=== PATIENT | male | born 1955 | race Caucasian/White ===

== ENCOUNTER 2023-05-09 22:18 | Inpatient (IN) | payer OTHER ==
[~2023-05-09 22:18] MED LIST: MIDAZOLAM 2 MG/2 ML VIAL IVP ONE; fentaNYL (PF) 50 MCG/1 ML VIAL IVP ONE
[2023-05-09] MEDS ORDERED: HEPARIN SODIUM 1,000 UN/ML (10ML VL) IVP STA (22:19)
[2023-05-09] MEDS ORDERED: ATORVASTATIN 80 MG TAB PO STA (22:19)
[2023-05-09 22:22] LABS: Glucose,Whole Blood 441 mg/dL (70-110)
[2023-05-09] MEDS ORDERED: NALOXONE 0.4 MG/ML 1 ML VIAL IV PRN (22:23)
[2023-05-09] MEDS ORDERED: DEXTROSE 5% IN WATER 100 ML with AMIODARONE 150 MG IV ONE (22:30)
[2023-05-09 22:36] LABS: Basophils # (A) 0.1 k/uL (0-0.2); Basophils % (A) 1 %; Eosinophils # (A) 0.1 k/uL (0-0.7); Eosinophils % (A) 1 %; HCT 48.9 % (39.0-53.0); HGB 17.1 gm/dL (13.0-17.5); Lymphocytes # (A) 3.6 k/uL (1.0-4.8); Lymphocytes % (A) 41 %; MCHC 34.9 g/dL (31.0-37.0); MCV 91.8 fL (80.0-100.0); Mean Platelet Volume 9.5; Monocytes # (A) 0.4 k/uL (0-1.0); Monocytes % (A) 5 %; Neutrophils # (A) 4.5 k/uL (1.3-7.7); Neutrophils % (A) 51 %; Platelet Count 120 k/uL (150-450); RBC 5.32 m/uL (4.30-5.90); RDW 14.3 % (11.5-15.5); WBC 8.9 k/uL (3.8-10.6)
[2023-05-09] MEDS ORDERED: AMIODARONE 360 MG in DEXTROSE 5% IN WATER 200 ML IV ONE ×2 (22:40)
--- NOTE | 2023-05-09 22:46 | ED ---
General Adult HPI - General Stated complaint: STEMI Time Seen by Provider: 05/09/23 22:20 Source: patient, EMS, RN notes reviewed, old records reviewed Limitations: no limitations - History of Present Illness Initial comments: 68 yo male presenting as acute NV. Patient was prehospital activation of STEMI protocol based on the anterior elevation on EKG. He had complaint of chest pain and diaphoresis this was central left-sided chest pain. He was noted to be in a tachydysrhythmia upon arrival, likely V. tach. Patient is chest pain-free upon arrival. He had elevated blood sugar and does admit to alcohol consumption today. No vomiting. Patient given aspirin by paramedics during transport - Related Data Home Medications Medication Instructions Recorded Confirmed metFORMIN HCL [Glucophage] 1,000 mg PO DAILY 05/16/18 05/16/18 Allergies Allergy/AdvReac Type Severity Reaction Status Date / Time No Known Allergies Allergy Verified 05/16/18 09:44 Review of Systems ROS Statement: Those systems with pertinent positive or pertinent negative responses have been documented in the HPI. ROS Other: All systems not noted in ROS Statement are negative. Past Medical History Past Medical History: Diabetes Mellitus, GERD/Reflux Additional Past Medical History / Comment(s): seasonal allergies, joint pain, tobacco and alcohol abuse History of Any Multi-Drug Resistant Organisms: None Reported Past Surgical History: No Surgical Hx Reported Past Anesthesia/Blood Transfusion Reactions: No Reported Reaction Past Psychological History: Depression Additional Psychological History / Comment(s): previous suicide attempt Past Alcohol Use History: Daily Additional Past Alcohol Use History / Comment(s): 1 case of beer every 5 days Past Drug Use History: None Reported General Exam General appearance: alert, appears intoxicated Head exam: Present: atraumatic, normocephalic Eye exam: Present: normal appearance, PERRL Respiratory exam: Present: normal lung sounds bilaterally. Absent: respiratory distress, wheezes Cardiovascular Exam: Present: regular rate, normal rhythm GI/Abdominal exam: Present: distended Extremities exam: Present: normal inspection, normal capillary refill Neurological exam: Present: alert, oriented X3 Skin exam: Present: warm, intact Medical Decision Making - Medical Decision Making Was pt. sent in by a medical professional or institution (, PA, [employer], urgent care, hospital, or senior care...) When possible be specific @ -No Did you speak to anyone other than the patient for history (EMS, parent, family, police, friend...)? What history was obtained from this source @ -No Did you review nursing and triage notes (agree or disagree)? Why? @ -I reviewed and agree with nursing and triage notes Were old charts reviewed (outside hosp., previous admission, EMS record, old EKG, old radiological studies, urgent care reports/EKG's, senior care records)? Report findings @ -No old charts were reviewed Differential Diagnosis (chest pain, altered mental status, abdominal pain women, abdominal pain men, vaginal bleeding, weakness, fever, dyspnea, syncope, headache, dizziness, GI bleed, back pain, seizure, CVA, palpatations, mental health, musculoskeletal)? @ -not applicable EKG interpreted by me (3pts min.). @ -Sinus tachycardia with ST segment elevation in the anterior leads, rate of 112, ND interval 159, QRS duration 97, QTC 388. X-rays interpreted by me (1pt min.). @ -Stat x-ray ordered, images pending CT interpreted by me (1pt min.). @ -None done U/S interpreted by me (1pt. min.). @ -None done What testing was considered but not performed or refused? (CT, X-rays, U/S, labs)? Why? @ -None What meds were considered but not given or refused? Why? @ -None Did you discuss the management of the patient with other professionals (professionals i.e. , PA, [employer], lab, RT, psych nurse, foster care social worker, quill layer, teacher, juvenile officer, senior case manager)? Give summary @ -[Dr. Griffith covering for cardiology, out physician group Was smoking cessation discussed for >3mins.? @ -No Was critical care preformed (if so, how long)? @ -No Were there social determinants of health that impacted care today? How? (Homelessness, low income, unemployed, alcoholism, drug addiction, transportation, low edu. Level, literacy, decrease access to med. care, long term, rehab)? @ -No Was there de-escalation of care discussed even if they declined (Discuss DNR or withdrawal of care, Hospice)? DNR status @ -No What co-morbidities impacted this encounter? (DM, HTN, Smoking, COPD, CAD, Cancer, CVA, ARF, Chemo, Hep., AIDS, mental health diagnosis, sleep apnea, morbid obesity)? @ -Diabetes, current smoker, alcohol Was patient admitted / discharged? Hospital course, mention meds given and route, prescriptions, significant lab abnormalities, going to OR and other pertinent info. @68-year-old male with ventricular tachycardia and acute NV. Patient is a STEMI activation, had been given aspirin prior to arrival. He's given heparin, Lipitor, and amiodarone in the emergency department. All workup is pending at the time of this dictation. Patient admitted immediately to the [facility]. Undiagnosed new problem with uncertain prognosis? @ -No Drug Therapy requiring intensive monitoring for toxicity (Heparin, Nitro, Insulin, Cardizem)? @ -No Were any procedures done? @ -No Diagnosis/symptom? @ -V. tach, STEMI Acute, or Chronic, or Acute on Chronic? @ -Acute Uncomplicated (without systemic symptoms) or Complicated (systemic symptoms)? @ -Complicated Side effects of treatment? @ -No Exacerbation, Progression, or Severe Exacerbation? @ -No Poses a threat to life or bodily function? How? (Chest pain, USA, NV, pneumonia, PE, COPD, DKA, ARF, appy, cholecystitis, CVA, Diverticulitis, Homicidal, Suicidal, threat to staff... and all critical care pts) @ -[S, STEMI - Lab Data Lab Results 05/09/23 Range/Units 22:20 POC Glucose (mg/dL) 441 H (70-110) mg/dL POC Glu Progressive Care Nurse ID Erica Rebollar Disposition Clinical Impression: STEMI (ST elevation myocardial infarction) Disposition: ADMITTED IP TO THIS HOSP Condition: Serious Is patient prescribed a controlled substance at d/c from ED?: No Referrals: [facility],Clinic [Primary Care Provider] - 1-2 days Time of Disposition: 22:45
--- NOTE | 2023-05-09 22:47 | XR ---
EXAM: XR Chest, 1 View CLINICAL HISTORY: ITS.REASON XR Reason: chest pain TECHNIQUE: Frontal view of the chest. COMPARISON: No relevant prior studies available. FINDINGS: Lungs: Unremarkable. No consolidation. Pleural space: Unremarkable. No pneumothorax. Heart: Unremarkable. No cardiomegaly. Mediastinum: Unremarkable. Normal mediastinal contour. Bones/joints: Unremarkable. No acute fracture. IMPRESSION: Normal chest x-ray.
[2023-05-09 22:49] LABS: INR 0.9 (<1.2); Partial Thromboplastin Time 22.8 sec (22.0-30.0); Prothrombin Time 10.5 sec (10.0-12.5)
--- NOTE | 2023-05-09 22:50 | P.CRDCN ---
History of Present Illness Consult date: 05/09/23 History of present illness: HISTORY OF PRESENTING ILLNESS 68-year-old male who has not seen any physician recently and last 3 years. He smokes 1 pack per day has been a long-term smoker. He also drinks alcohol almost every day approximately 4 drinks. Patient reports that he was apparently well until his dinner. After dinner he started experiencing substernal chest pain which was pressure-like and heavy sensation. It was not relieved with 2 full dose aspirin switch his gave him. It was associated with difficulty in breathing and diaphoresis and nausea. Due to this to called EMS. When EMS arrived they noticed that he was in ventricular tachycardia with heart rate around 150s. He came out of ventricular tachycardia spontaneously and postconversion ECG shows ST elevations in lead V2 to V4. STEMI alert was activated and cardiology was paged. I evaluate the patient around 10:30 PM. Performed a bedside echocardiogram which showed mid to distal anterior anteroseptal and anteroapical wall hypokinesia. EF appeared to be in the range of 35-40%. Patient denies any prior history of stroke, TIA bleeding problems major AL LERGIES. Patient received 325 mg of aspirin, 4000 units of heparin, 150 mg bolus of amiodarone. REVIEW OF SYSTEMS 14 point review of system is negative except what is mentioned above in HPI. PHYSICAL EXAMINATION Vital signs reviewed. Head: Normocephalic. Eyes: Sclerae nonicteric. Neck: Brisk carotid upstroke, no jugular venous distention. Lungs: Clear to auscultation. Heart: Regular rate and rhythm, S1-S2, no S3, no murmur or rub. Abdomen: Soft nontender, positive bowel sounds no organomegaly. Extremities: No edema, intact distal pulses. Neuro: Alert, oritented, no focal deficits ASSESSMENT Anterior STEMI Heavy smoking history Heavy alcohol use history PLAN Plan for emergent cardiac catheterization Further recommendations to follow Past Medical History Past Medical History: Diabetes Mellitus, GERD/Reflux Additional Past Medical History / Comment(s): seasonal allergies, joint pain, tobacco and alcohol abuse History of Any Multi-Drug Resistant Organisms: None Reported Past Surgical History: No Surgical Hx Reported Past Anesthesia/Blood Transfusion Reactions: No Reported Reaction Past Psychological History: Depression Additional Psychological History / Comment(s): previous suicide attempt Past Alcohol Use History: Daily Additional Past Alcohol Use History / Comment(s): 1 case of beer every 5 days Past Drug Use History: None Reported Medications and Allergies Home Medications Medication Instructions Recorded Confirmed Type metFORMIN HCL [Glucophage] 1,000 mg PO DAILY 05/16/18 05/16/18 History Allergies Allergy/AdvReac Type Severity Reaction Status Date / Time No Known Allergies Allergy Verified 05/16/18 09:44 Physical Exam Vitals: Vital Signs Temp Pulse Resp BP Pulse Ox 05/09/23 22:33 97.8 F 111 H 18 136/90 97 Intake and Output 05/09/23 05/09/23 05/09/23 06:59 14:59 22:59 Other: Weight 99.79 kg Results 05/09/23 22:23 CBC 05/09/23 Range/Units 22:23 WBC 8.9 (3.8-10.6) k/uL RBC 5.32 (4.30-5.90) m/uL Hgb 17.1 (13.0-17.5) gm/dL Hct 48.9 (39.0-53.0) % Plt Count 120 L (150-450) k/uL Current Medications Generic Name Dose Route Start Last Admin Trade Name Freq PRN Reason Stop Dose Admin Amiodarone HCl 360 mg/ 200 mls @ 33.333 mls/hr 05/09/23 22:40 Dextrose/Water IV 05/10/23 04:39 .Q6H ONE Protocol 1 MG/MIN Amiodarone HCl 450 mg/ 250 mls @ 16.667 mls/hr 05/10/23 04:30 Dextrose/Water IV 05/10/23 22:29 .Q15H KATY Protocol 0.5 MG/MIN Naloxone HCl 0.2 mg 05/09/23 22:23 Naloxone 0.4 Mg/Ml 1 Ml Vial IV Q2M PRN Opioid Reversal Intake and Output 05/09/23 05/09/23 05/09/23 06:59 14:59 22:59 Other: Weight 99.79 kg Patient Weight 05/10/23 06:59 Weight 99.79 kg 05/09/23 22:23
[2023-05-09 22:52] LABS: ALT 24 U/L (4-49); AST 21 U/L (17-59); African American GFR (CKD) 88 (>60 ml/min/1.73 sqM); Albumin 4.5 g/dL (3.5-5.0); Alkaline Phosphatase 118 U/L (38-126); Anion Gap 15 mmol/L; Blood Urea Nitrogen 19 mg/dL (9-20); Calcium 9.4 mg/dL (8.4-10.2); Carbon Dioxide 21 mmol/L (22-30); Chloride 98 mmol/L (98-107); Glucose 412 mg/dL (74-99); Non-African American GFR(CKD) 76 (>60 ml/min/1.73 sqM); Potassium 3.7 mmol/L (3.5-5.1); Sodium 134 mmol/L (137-145); Total Bilirubin 0.8 mg/dL (0.2-1.3); Total Protein 7.6 g/dL (6.3-8.2)
[2023-05-09] MEDS ORDERED: fentaNYL (PF) 50 MCG/ML 2 ML AMP ONE (22:54)
[2023-05-09] MEDS: fentaNYL (PF) 50 MCG/1 ML VIAL IVP ONE ×2 (22:56→23:24)
[2023-05-09] MEDS ORDERED: IV FLUID CONTINUATION 1,000 ML IV ONE (22:56)
[2023-05-09] MEDS ORDERED: MIDAZOLAM 2 MG/2 ML VIAL IVP ONE ×2 (22:56→23:24)
[2023-05-09] MEDS ORDERED: LIDOCAINE 1% INJ 10MG/ML (20 ML MDV) SQ ONE (22:57)
[2023-05-09] MEDS ORDERED: VERAPAMIL SYRINGE (5 MG/10 ML) INTRAARTER ONE (22:58)
[2023-05-09] MEDS: HEPARIN SODIUM 1,000 UN/ML (10ML VL) IV ONE ×3 (23:08→23:41)
[2023-05-09] MEDS ORDERED: TICAGRELOR 90 MG TAB ONE (23:16)
[2023-05-09] MEDS ORDERED: TICAGRELOR 90 MG TAB PO ONE (23:19)
[2023-05-09] MEDS ORDERED: SODIUM CHLORIDE 0.9% 1,000 ML IV ONE (23:25)
--- NOTE | 2023-05-09 23:28 | P.CARDCATH ---
Date of Procedure: 05/09/23 Description of Procedure: LEFT HEART CATH REPORT PROCEDURES PERFORMED: Selective coronary angiography Moderate conscious sedation [21] mins Right radial access INDICATION: STEMI CONSENT: I have discussed the risks, benefits and alternative therapies for the above-mentioned procedure, sedation/analgesia and necessary blood product administration (if indicated, as they pertain to this patient). The patient has indicated understanding and acceptance of the risks and procedures discussed. Conscious Sedation: Patient's ECG, heart rate, blood pressure, pulse oximetry was monitored throughout the duration of procedure under my direct supervision. [1] mg Versed and [50] mg Fentanyl were used for induction of moderate conscious sedation. Total duration of moderate concious sedation [21] minutes. PROCEDURE: After explaining the risks, benefits and alternatives of the above mentioned procedures in detail to the patient, informed consent was obtained. Patient was taken to the catheterization lab, prepped and draped in usual sterile fashion using universal precuations. Barbow and luis test were performed to confirm adequate perfusion to fingers. Ultrasound was used to identify the radial artery. 1% lidocaine was infiltrated over the right radial artery. A 6-Georgian sheath was placed and secured in the right radial artery using modified Seldinger technique. The sheath was flushed and 5 mg verapamil was administered intra-arterially. J tipped wire was advanced under fluoroscopic guidance. Once the wire tip reached aortic root 2500 units of IV heparin was given. Patient received 4000 U in ER Over the wire JL4 diagnostic catheter was advanced. Wire was removed, catheter was flushed and manipulated under fluoroscopy to selectively engaged the left coronary ostium. Left coronary angioplasty was performed in different angiographic projections. This catheter was exchanged for a JR4 diagnostic catheter over the wire. The catheter was flushed and manipulated to cross the aortic valve. LV pressures were obtained. Pullback was performed across aortic valve and catheter was manipulated to selectively engage the right coronary ostium under fluoroscopic guidance. Right coronary angiography was performed in different angiographic projections. Catheter was removed over the wire. Radial sheath was flushed. Decision was made to proceed with PCI to ostial LAD HEMODYNAMICS: Aortic Pressure: 110/70 mmHg. LV pressure was not obtained to focus on LAD intervention in setting of STEMI SELECTIVE CORONARY ARTERIOGRAPHY: LEFT MAIN: The left main is a large caliber vessel which trifurcates into the LAD, Ramus and circumflex. Left main appears angiographically normal. LEFT ANTERIOR DESCENDING CORONARY ARTERY: Ostial LAD has 95% stenosis of YRN II flow distally. RAMUS: Large caliber vessel and appears angiographically normal. LEFT CIRCUMFLEX CORONARY ARTERY: It is nondominant vessel. Left circumflex is a moderate caliber vessel. Has mild luminal irregularities. It gives rise to a medium-sized OM1 branch which has a high takeoff, has mild luminal irregularities. RIGHT CORONARY ARTERY: Dominant vessel. The right coronary artery is a large caliber vessel which gives PDA and PLV branch. It has mild luminal irregularities. It gives septal collaterals to LAD and some collaterals to diagonal artery. IMPRESSION: 95% Ostial LAD stenosis with YRN II flow. Faint collaterals from RCA filling LAD retrogradely Mild CAD in other arteries PLAN: Plan PCI of ostial LAD Performing Physician Mychal Griffith MD
[2023-05-09] MEDS: NITROGLYCERIN 1000MCG/10ML SYRINGE INTRACORON ONE ×2 (23:32→23:38)
[2023-05-09] MEDS ORDERED: IOPAMIDOL-370 200ML BTL INJ ONE (23:47)
[2023-05-09] MEDS ORDERED: MAG HYDROX/AL HYDROX/SIMETH 30 ML CUP PO PRN (23:59)
[2023-05-09] MEDS ORDERED: RX INFO: IV CONTRAST WAS GIVEN 1 EACH MISC MISCELLANE PRN (23:59)
[2023-05-09] MEDS ORDERED: NITROGLYCERIN SL TABS 0.4 MG TAB SUBLINGUAL PRN (23:59)
[2023-05-09] MEDS ORDERED: ATROPINE SULFATE 0.1 MG/ML 10ML SYRINGE IV PRN (23:59)
[2023-05-09] MEDS ORDERED: ZOLPIDEM 5 MG TAB PO PRN (23:59)
--- NOTE | 2023-05-09 23:59 | P.PRCINT ---
Percutaneous Coronary Int. - Percutaneous Coronary Intervention Percutaneous Coronary Intervention: PROCEDURES PERFORMED: Left coronary angiography, PCI proximal LAD with overlapping 3.0 x 18mm and 2.5 x 12mm Xience SHANA, IVUS LAD INDICATION: Anterior STEMI CONSENT:I have discussed the risks, benefits and alternative therapies for the above-mentioned procedure and for both sedation/analgesia as well as necessary blood product administration, if indicated, as they pertain to this patient. The patient has indicated understanding and acceptance of the risks and procedures discussed. PROCEDURE: After the risks, benefits and alternatives of the above mentioned procedure explained in detail with the patient, informed consent was obtained. Patient was taken to the catheterization lab and prepped and draped in usual fashion. A 6-Nepali sheath had previously been placed in the right radial artery. Patient was not having active chest pain and presentation subacute with right to left collaterals however given ventricular tachycardia and possible ischemia mediated ventricular tachycardia, decision was made to perform PCI. A 6-Nepali CLS 3.5 guide was using diesel left main. Heparin was given. A 0.014 whisper wire was used to advance into the distal LAD. Predilation was performed with a 2.5 x 12 mm balloon. Next a 3.0 x 18mm Xience SHANA was placed in the proximal LAD. Intravascular ultrasound was performed. There was likely vasospasm with small caliber mid to distal LAD measuring approximately 2.0 mm. There was a more distal lesion just after the stent and therefore an additional 2.5 x 12 mm Xience SHANA was placed overlapping the first stent. The wire was pulled and final exams were performed. Preintervention there was 99% stenosis and YRN 1 flow in both intervention there was 0% stenosis with YRN 3 flow. The right radial sheath was removed and a TR band was placed with hemostasis achieved. The patient tolerated the procedure well. Patient was transported back to the post catheterization holding area in stable condition. Conscious Sedation: Patient was monitored under the direct supervision of myself for conscious sedation using Versed and fentanyl for a total duration of 33 minutes HEMODYNAMICS: Aorta: 105/68 SELECTIVE CORONARY ARTERIOGRAPHY: LEFT MAIN: The left main is a large caliber vessel which trifurcates into the LAD, ramus and circumflex. There is no significant stenosis. LEFT ANTERIOR DESCENDING CORONARY ARTERY: LAD is a large caliber vessel which wr aps around to the apex. There is a proximal LAD 99% stenosis and otherwise mild luminal irregularities. RAMUS INTERMEDIUS: Ramus is a moderate to large caliber vessel with mild luminal irregularities LEFT CIRCUMFLEX CORONARY ARTERY: Left circumflex is a moderate caliber vessel which also gives off a high OM 1 nearly back at the ostium of the circumflex with mild luminal irregularities. RIGHT CORONARY ARTERY: The right coronary artery is a large caliber vessel which gives off a PDA and PLV branch and is the dominant vessel. There is no significant stenosis. FINAL IMPRESSION: 1. CAD as described above including 99% proximal LAD lesion with right to left collaterals 2. S/p PCI proximal LAD with overlapping 3.0 x 18mm and 2.5 x 12mm Xience SHANA PLAN: 1. Aggressive risk factor modification per most recent ACC/AHA guidelines. 2. Continue dual antiplatelets with aspirin and Brillinta for 12 months
[2023-05-10] MEDS: SODIUM CHLORIDE 0.9% 1,000 ML IV SCH ×2 (01:00→15:34)
[2023-05-10] MEDS: METOPROLOL TARTRATE 25 MG TAB PO SCH ×3 (01:12→19:58)
[2023-05-10 04:26] LABS: HCT 42.6 % (39.0-53.0); HGB 14.2 gm/dL (13.0-17.5); MCH 31.6 pg (25.0-35.0); MCHC 33.4 g/dL (31.0-37.0); MCV 94.6 fL (80.0-100.0); Mean Platelet Volume 9.6; Platelet Count 110 k/uL (150-450); RBC 4.51 m/uL (4.30-5.90); WBC 7.7 k/uL (3.8-10.6)
[2023-05-10] MEDS: AMIODARONE 450 MG in DEXTROSE 5% IN WATER 250 ML IV SCH ×4 (04:51→20:55)
--- NOTE | 2023-05-10 04:52 | P.HPIM ---
History of Present Illness H&P Date: 05/09/23 Chief Complaint: chest pain 68 year old male with no significant past medical history ,patient does not follow up with PCP > 3 years now. coming in afterr sudden onset chest pain after dinner, described as crushing pressure, restrosternal started after dinner, 10/10 in severity with difficulty breathing, profuse sweating and feeling nauseated. patient gave him two f ull doses of aspirin and notified EMS .patient denies any cardiac history , or prior episodes of severe chest pain. upon EMS arrival he was noted to be in Vtach that converted spontaneously , after which EKG showed ST elevation in leads V2-V4. 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 patient taken to [facility] and had a proximl LAD stent placed patient admit to smoking 1 PPD , denies any illicit drugs, admits to regular drinking . denies any cardiac history or blood clots. denies any URI symptoms , GI bleeding , changes in urnary or bowel habits. review of systems Pertinent positives as noted in HPI. All other systems were reviewed and are negative on exam Constitutional: No acute distress Eyes: Anicteric sclerae, moist conjunctiva, Pupils equal round reactive to light ENMT: NC/AT Oropharynx clear, no erythema, or exudates Neck: Supple, no masses, or JVD No carotid bruits No thyromegaly Lungs: Clear to auscultation Clear to percussion Normal respiratory effort, no accessory muscle use Cardiovascular: Heart regular in rate and rhythm, No murmurs, gallops, or rubs No peripheral edema Abdominal: Soft Nontender, no guarding, rebound or rigidity Abdomen moving with respiration Normoactive bowel sounds No hepatomegaly, No splenomegaly No palpable mass No abdominal wall hernia noted Extremities: access site right wrist looks unremarkable , no swelling or active bleeding No digital cyanosis No clubbing Pedal pulses intact and symmetrical Radial pulses intact and symmetrical No calf tenderness Psychiatric: Alert and oriented to person, place and time Neuro Muscles Strength 5/5 in all 4 extremities Sensation to light touch grossly present throughout Cranial nerves II-XII grossly intact Lymphatics: no palpable cervical or supraclavicular lymph nodes Past Medical History Past Medical History: Diabetes Mellitus, GERD/Reflux Additional Past Medical History / Comment(s): seasonal allergies, joint pain, tobacco and alcohol abuse History of Any Multi-Drug Resistant Organisms: None Reported Past Surgical History: No Surgical Hx Reported Past Anesthesia/Blood Transfusion Reactions: No Reported Reaction Past Psychological History: Depression Additional Psychological History / Comment(s): previous suicide attempt Past Alcohol Use History: Daily Additional Past Alcohol Use History / Comment(s): 1 case of beer every 5 days Past Drug Use History: None Reported Medications and Allergies Home Medications Medication Instructions Recorded Confirmed Type metFORMIN HCL [Glucophage] 1,000 mg PO DAILY 05/16/18 05/16/18 History Allergies Allergy/AdvReac Type Severity Reaction Status Date / Time No Known Allergies Allergy Verified 05/16/18 09:44 Physical Exam Vitals: Vital Signs Temp Pulse Resp BP Pulse Ox 05/09/23 22:33 97.8 F 111 H 18 136/90 97 05/09/23 22:30 101 H 18 116/81 97 Intake and Output 05/09/23 05/09/23 05/10/23 14:59 22:59 06:59 Intake Total 100 Balance 100 Intake: IV 100 Other: Weight 99.79 kg Results CBC & Chem 7: 05/10/23 03:50 05/09/23 22:23 Labs: Abnormal Lab Results - Last 24 Hours (Table) 05/09/23 05/09/23 05/09/23 Range/Units 22:20 22:23 22:23 Plt Count 120 L (150-450) k/uL Sodium 134 L (137-145) mmol/L Carbon Dioxide 21 L (22-30) mmol/L Glucose 412 H (74-99) mg/dL POC Glucose (mg/dL) 441 H (70-110) mg/dL Assessment and Plan Assessment: 68 year old male with no regular follow up with PCP, coming in for sudden onset chest pain after dinner, EMS noted Vtach that converted spontaneously , EKG showed ST elevation anteroseptal , I discussed the case with ED doc , patient was taken to [facility], and had a proximal LAD stents deployed. with anticipated length of stay > 2midnights STEMI Spontaneously convert V. tach Ischemic cardiomyopathy with left ventricular ejection fraction estimated 3540 percent Cardiology following Status post PCI 2 stents placed in proximal LAD Continue with dual antiplatelets aspirin and Brilinta per cardiology recommendations Maximal medical therapy Continue with amiodarone drip Lipitor 80 mg daily at bedtime Check lipid panel Check echocardiogram Hypertension Losartan 12.5 mg daily Metoprolol 25 mg by mouth twice a day Elevated blood sugar 400 range Suspected diabetes mellitus Initiate insulin sliding scale Check A1c Renal function unremarkable sodium 134 potassium 3.7 BUN 19 creatinine 1 Hemoglobin 14 white count 7.7 CODE STATUS patient requesting to be DO NOT RESUSCITATE DVT prophylaxis heparin subcu 3 times a day
[2023-05-10] MEDS ORDERED: DEXTROSE 50% SYRINGE 50 ML IVP PRN ×2 (04:53)
[2023-05-10 05:04] LABS: ALT 20 U/L (4-49); AST 20 U/L (17-59); African American GFR (CKD) >90 (>60 ml/min/1.73 sqM); Albumin 3.4 g/dL (3.5-5.0); Alkaline Phosphatase 113 U/L (38-126); Anion Gap 9 mmol/L; Blood Urea Nitrogen 20 mg/dL (9-20); Calcium 8.4 mg/dL (8.4-10.2); Carbon Dioxide 25 mmol/L (22-30); Chloride 101 mmol/L (98-107); Glucose 485 mg/dL (74-99); Non-African American GFR(CKD) 83 (>60 ml/min/1.73 sqM); Potassium 4.8 mmol/L (3.5-5.1); Sodium 135 mmol/L (137-145); Total Bilirubin 0.6 mg/dL (0.2-1.3); Total Protein 5.9 g/dL (6.3-8.2)
[2023-05-10 06:25] LABS: Glucose,Whole Blood 416 mg/dL (70-110)
[2023-05-10] MEDS: INSULIN ASPART (NovoLOG) 100 UNIT/ML VIAL SQ SCH ×4 (06:51→20:53)
[2023-05-10] MEDS ORDERED: ATORVASTATIN 20 MG TAB PO SCH (09:00)
[2023-05-10 09:48] LABS: Chol/HDL Ratio 6.19 Ratio; LDL Cholesterol,Calculated 145.9 mg/dL (0.0-131.0)
[2023-05-10] MEDS: ASPIRIN 81 MG PO SCH (10:16)
[2023-05-10] MEDS: LOSARTAN 25 MG TAB PO SCH (10:16)
[2023-05-10] MEDS: TICAGRELOR 90 MG TAB PO SCH ×2 (10:16→19:58)
[2023-05-10 11:16] LABS: Glucose,Whole Blood 233 mg/dL (70-110)
--- NOTE | 2023-05-10 11:42 | P.GSCN ---
History of Present Illness Consult date: 05/10/23 Reason for Consult: Left hydrocele History of present illness: This is a 68-year-old male admitted to the hospital with NSTEMI urology is consu lted for a left sided hydrocele. Patient indicated this has been present for approximately 4 years has not changed in size he is not having pain secondary to his hydrocele but it is causing penile retraction and difficulty voiding. Denies any dysuria or gross hematuria. No previous surgeries. Underwent a scrotal ultrasound that showed evidence of a left hydrocele, otherwise right- sided was within normal limits. Review of Systems - Constitutional Denies fever, Denies weight loss - EENT Ears, nose, mouth and throat: Denies dysphagia - Cardiovascular Denies chest pain, Denies shortness of breath - Respiratory Denies cough, Denies 7 - Gastrointestinal Reports as per HPI - Genitourinary Denies dysuria, Denies flank pain, Denies hematuria Past Medical History Past Medical History: Diabetes Mellitus, GERD/Reflux Additional Past Medical History / Comment(s): seasonal allergies, joint pain, tobacco and alcohol abuse History of Any Multi-Drug Resistant Organisms: None Reported Past Surgical History: No Surgical Hx Reported Past Anesthesia/Blood Transfusion Reactions: No Reported Reaction Past Psychological History: Depression Additional Psychological History / Comment(s): previous suicide attempt Past Alcohol Use History: Daily Additional Past Alcohol Use History / Comment(s): 1 case of beer every 5 days Past Drug Use History: None Reported Medications and Allergies Home Medications Medication Instructions Recorded Confirmed Type No Known Home Medications 05/10/23 05/10/23 History Allergies Allergy/AdvReac Type Severity Reaction Status Date / Time No Known Allergies Allergy Verified 05/10/23 09:27 Surgical - Exam Vital Signs Pulse Resp BP Pulse Ox 101 H 18 116/81 97 05/09/23 22:30 05/09/23 22:30 05/09/23 22:30 05/09/23 22:30 - General no distress, no pain - Eyes normal ocular movement, no pale - ENT normal nares, normal mucosa - Respiratory normal expansion, normal respiratory effort - Abdomen Abdomen: soft, non tender - Genitourinary Large tense left-sided hydrocele, unable to palpate the testicle. Normal right testicle - Psychiatric oriented to time, oriented to person, oriented to place Results - Labs 05/10/23 03:50 05/10/23 03:50 Abnormal Lab Results - Last 24 Hours (Table) 05/09/23 05/09/23 05/09/23 Range/Units 03:50 22:20 22:23 Plt Count 120 L (150-450) k/uL Sodium (137-145) mmol/L Carbon Dioxide (22-30) mmol/L Glucose (74-99) mg/dL POC Glucose (mg/dL) 441 H (70-110) mg/dL Hemoglobin A1c 10.4 H (<=6.0) % Total Protein (6.3-8.2) g/dL Albumin (3.5-5.0) g/dL Triglycerides (0.00-149.00) mg/dL Cholesterol (0.00-200.00) mg/dL LDL Cholesterol, Calc (0.0-131.0) mg/dL VLDL Cholesterol, Calc (5.00-40.00) mg/dL HDL Cholesterol (40.00-60.00) mg/dL 05/09/23 05/10/23 05/10/23 Range/Units 22:23 03:50 03:50 Plt Count 110 L (150-450) k/uL Sodium 134 L 135 L (137-145) mmol/L Carbon Dioxide 21 L (22-30) mmol/L Glucose 412 H 485 H (74-99) mg/dL POC Glucose (mg/dL) (70-110) mg/dL Hemoglobin A1c (<=6.0) % Total Protein 5.9 L (6.3-8.2) g/dL Albumin 3.4 L (3.5-5.0) g/dL Triglycerides (0.00-149.00) mg/dL Cholesterol (0.00-200.00) mg/dL LDL Cholesterol, Calc (0.0-131.0) mg/dL VLDL Cholesterol, Calc (5.00-40.00) mg/dL HDL Cholesterol (40.00-60.00) mg/dL 05/10/23 05/10/23 05/10/23 Range/Units 03:50 06:23 11:15 Plt Count (150-450) k/uL Sodium (137-145) mmol/L Carbon Dioxide (22-30) mmol/L Glucose (74-99) mg/dL POC Glucose (mg/dL) 416 H 233 H (70-110) mg/dL Hemoglobin A1c (<=6.0) % Total Protein (6.3-8.2) g/dL Albumin (3.5-5.0) g/dL Triglycerides 285.00 H (0.00-149.00) mg/dL Cholesterol 242.00 H (0.00-200.00) mg/dL LDL Cholesterol, Calc 145.9 H (0.0-131.0) mg/dL VLDL Cholesterol, Calc 57.00 H (5.00-40.00) mg/dL HDL Cholesterol 39.10 L (40.00-60.00) mg/dL Diabetes panel 05/09/23 05/09/23 05/10/23 Range/Units 03:50 22:23 03:50 Sodium 134 L 135 L (137-145) mmol/L Potassium 3.7 4.8 (3.5-5.1) mmol/L Chloride 98 101 (98-107) mmol/L Carbon Dioxide 21 L 25 (22-30) mmol/L BUN 19 20 (9-20) mg/dL Creatinine 1.03 0.96 (0.66-1.25) mg/dL Glucose 412 H 485 H (74-99) mg/dL Hemoglobin A1c 10.4 H (<=6.0) % Calcium 9.4 8.4 (8.4-10.2) mg/dL AST 21 20 (17-59) U/L ALT 24 20 (4-49) U/L Alkaline Phosphatase 118 113 (38-126) U/L Total Protein 7.6 5.9 L (6.3-8.2) g/dL Albumin 4.5 3.4 L (3.5-5.0) g/dL Triglycerides (0.00-149.00) mg/dL HDL Cholesterol (40.00-60.00) mg/dL 05/10/23 Range/Units 03:50 Sodium (137-145) mmol/L Potassium (3.5-5.1) mmol/L Chloride (98-107) mmol/L Carbon Dioxide (22-30) mmol/L BUN (9-20) mg/dL Creatinine (0.66-1.25) mg/dL Glucose (74-99) mg/dL Hemoglobin A1c (<=6.0) % Calcium (8.4-10.2) mg/dL AST (17-59) U/L ALT (4-49) U/L Alkaline Phosphatase (38-126) U/L Total Protein (6.3-8.2) g/dL Albumin (3.5-5.0) g/dL Triglycerides 285.00 H (0.00-149.00) mg/dL HDL Cholesterol 39.10 L (40.00-60.00) mg/dL Calcium panel 05/09/23 05/10/23 Range/Units 22: 03:50 Calcium 9.4 8.4 (8.4-10.2) mg/dL Albumin 4.5 3.4 L (3.5-5.0) g/dL Pituitary panel 05/09/23 05/10/23 Range/Units 22: 03:50 Sodium 134 L 135 L (137-145) mmol/L Potassium 3.7 4.8 (3.5-5.1) mmol/L Chloride 98 101 (98-107) mmol/L Carbon Dioxide 21 L 25 (22-30) mmol/L BUN 19 20 (9-20) mg/dL Creatinine 1.03 0.96 (0.66-1.25) mg/dL Glucose 412 H 485 H (74-99) mg/dL Calcium 9.4 8.4 (8.4-10.2) mg/dL Adrenal panel 05/09/23 05/10/23 Range/Units 22:23 03:50 Sodium 134 L 135 L (137-145) mmol/L Potassium 3.7 4.8 (3.5-5.1) mmol/L Chloride 98 101 (98-107) mmol/L Carbon Dioxide 21 L 25 (22-30) mmol/L BUN 19 20 (9-20) mg/dL Creatinine 1.03 0.96 (0.66-1.25) mg/dL Glucose 412 H 485 H (74-99) mg/dL Calcium 9.4 8.4 (8.4-10.2) mg/dL Total Bilirubin 0.8 0.6 (0.2-1.3) mg/dL AST 21 20 (17-59) U/L ALT 24 20 (4-49) U/L Alkaline Phosphatase 118 113 (38-126) U/L Total Protein 7.6 5.9 L (6.3-8.2) g/dL Albumin 4.5 3.4 L (3.5-5.0) g/dL Assessment and Plan Assessment: 68-year-old male with a history of a large left-sided hydrocele, asymptomatic from it. Patient is in the hospital with an NSTEMI. Discussed with him the only way to address the hydroceles is with a left hydrocelectomy, given his recent cardiac event I dont recommend any surgical intervention at this time. At this point he can follow-up as an outpatient in 2-3 months and he will be set up as an outpatient for left hydrocelectomy
--- NOTE | 2023-05-10 11:56 | US ---
EXAMINATION TYPE: US scrotum with doppler. Grayscale and color Doppler Duplex imaging performed of carlos alberto parsons scrotum. DATE OF EXAM: 05/10/2023 COMPARISON: NONE CLINICAL INDICATION: Male, 68 years old with history of enlarged scrotum; enlarged scrotum x 4 years EXAM MEASUREMENTS: TESTICLES: Right Testicle: 6.6x2.2x2.5 cm Left Testicle: 4.6x3.2x3.3 cm EPIDIDYMIS HEAD: Right Epididymis: 0.7 cm Left Epididymis: 0.8 cm Doppler performed to assess for testicular vascularity; good bilateral color flow and waveforms are s een. There is no evidence of testicular torsion. Presence of hydroceles: right side: complex fluid 12.9x10.5x10.2cm Presence of varicoceles: right side difficult to establish orientation of testicles due to large hydrocele, testicle non effected by hydr ocele is inferior to hydrocele exam limited by large hydrocele IMPRESSION: 1. Bilateral hydroceles measuring 12.9 cm on the right with some complexity which could be post infec tious or blood products etiology. Assessment of the testes limited due to the large hydroceles as dis cussed above.
[2023-05-10] MEDS ORDERED: INSULIN DETEMIR (LEVEMIR) 100 UNIT/ML SYR SQ ONE (12:00)
--- NOTE | 2023-05-10 13:41 | P.PN ---
Subjective Progress Note Date: 05/10/23 Hospital Course: 68-year-old male with history of nicotine dependence, and alcohol dependence presented with sudden onset chest pain. Upon EMS arrival he was noted to be in Vtach that converted spontaneously , after which EKG showed ST elevation in leads V2-V4. 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 In wharf labourer, found to have significant ostial LAD occlusion, 2 stents placed. Currently in medical ICU. Echocardiogram pending. Patient also found to have large scrotum likely hydrocele. Urology consulted. Subjective: Patient seen and examined at bedside. No acute events overnight. Pertinent positives and negatives as discussed above, a complete review of systems was performed and all other systems are negative. Vitals Signs Reviewed. General: nontoxic, no distress, appears at stated age Derm: warm, dry Head: atraumatic, normocephalic, symmetric Eyes: EOMI, no lid lag, anicteric sclera Mouth: no lip lesion, mucus membranes moist Cardiovascular: S1S2 reg, no murmur Lungs:CTA bilatera,no rhonchi, no rale ,no accessory muscle us, supplemental oxygen Abdominal:sof, nontender to palpatio,no guardin,no appreciable organomegal, large right scrotum Ext:no gross muscle atroph,no iraida,no contracture Neuro: CN II-XI grossly intac,no focal neuro deficit Psych:Aler,oriente,appropriate affec Data Reviewed Today: Pertinent Labs: WBC 7.7, hemoglobin 14.2, platelet 110, sodium 135, potassium 4.8, bicarb 25, creatinine 0.96, sugars range between 233-485, A1c 10.4, total cholesterol 242, LDL 145 Imaging: Scrotal ultrasound shows bilateral hydroceles measuring 12.9 cm on the right with some complexity which could be postinfectious or blood products etiology Assessment and Plan: Patient is critically ill, prognosis guarded STEMI status post LAD stent Ischemic cardiomyopathy Ventricular tachycardia, self terminated Dyslipidemia New-onset type 2 diabetes, A1c 10.4, with hyperglycemia -Cardiac cath report reviewed -Continue aspirin 81 mg daily, atorvastatin 80 mg daily, losartan 12.5 mg daily, metoprolol 25 mg twice a day, brilinta 90 mg twice a day -Echocardiogram pending -Started on Levemir 15 units daily, sliding scale insulin, monitor for hypoglycemia -consider starting farxiga -also on amio gtt, consider changing to oral Scrotal hydrocele -Mostly asymptomatic -Urology note reviewed, outpatient follow-up in 2-3 months Nicotine dependence -Counseled regarding smoking cessation Alcohol dependence -Monitor for withdrawals -Thiamine 100 mg daily DVT ppx: Subcu heparin Code status: DNR/DNI Anticipated discharge place: Pending clinical course Anticipated discharge time: Pending clinical course Objective - Vital Signs Vital signs: Vital Signs Temp 97.7 F 05/10/23 12:00 Pulse 57 L 05/10/23 12:00 Resp 24 05/10/23 12:00 BP 96/70 05/10/23 12:00 Pulse Ox 97 05/10/23 12:00 FiO2 Intake & Output 05/09/23 05/10/23 05/10/23 18:59 06:59 18:59 Intake Total 1200 500 Output Total 2200 550 Balance -1000 -50 Weight 100 kg Intake: IV 1200 500 Sodium Chloride 0.9% 1, 800 500 000 ml @ 100 mls/hr IV . Q10H KATY Rx#:[id number] Output: Urine 2200 550 Other: Voiding Method Urinal Urinal # Voids 2 1 - Labs CBC & Chem 7: 05/10/23 03:50 05/10/23 03:50 Labs: Abnormal Lab Results - Last 24 Hours (Table) 05/09/23 05/09/23 05/09/23 Range/Units 03:50 22:20 22:23 Plt Count 120 L (150-450) k/uL Sodium (137-145) mmol/L Carbon Dioxide (22-30) mmol/L Glucose (74-99) mg/dL POC Glucose (mg/dL) 441 H (70-110) mg/dL Hemoglobin A1c 10.4 H (<=6.0) % Total Protein (6.3-8.2) g/dL Albumin (3.5-5.0) g/dL Triglycerides (0.00-149.00) mg/dL Cholesterol (0.00-200.00) mg/dL LDL Cholesterol, Calc (0.0-131.0) mg/dL VLDL Cholesterol, Calc (5.00-40.00) mg/dL HDL Cholesterol (40.00-60.00) mg/dL 05/09/23 05/10/23 05/10/23 Range/Units 22:23 03:50 03:50 Plt Count 110 L (150-450) k/uL Sodium 134 L 135 L (137-145) mmol/L Carbon Dioxide 21 L (22-30) mmol/L Glucose 412 H 485 H (74-99) mg/dL POC Glucose (mg/dL) (70-110) mg/dL Hemoglobin A1c (<=6.0) % Total Protein 5.9 L (6.3-8.2) g/dL Albumin 3.4 L (3.5-5.0) g/dL Triglycerides (0.00-149.00) mg/dL Cholesterol (0.00-200.00) mg/dL LDL Cholesterol, Calc (0.0-131.0) mg/dL VLDL Cholesterol, Calc (5.00-40.00) mg/dL HDL Cholesterol (40.00-60.00) mg/dL 05/10/23 05/10/23 05/10/23 Range/Units 03:50 06:23 11:15 Plt Count (150-450) k/uL Sodium (137-145) mmol/L Carbon Dioxide (22-30) mmol/L Glucose (74-99) mg/dL POC Glucose (mg/dL) 416 H 233 H (70-110) mg/dL Hemoglobin A1c (<=6.0) % Total Protein (6.3-8.2) g/dL Albumin (3.5-5.0) g/dL Triglycerides 285.00 H (0.00-149.00) mg/dL Cholesterol 242.00 H (0.00-200.00) mg/dL LDL Cholesterol, Calc 145.9 H (0.0-131.0) mg/dL VLDL Cholesterol, Calc 57.00 H (5.00-40.00) mg/dL HDL Cholesterol 39.10 L (40.00-60.00) mg/dL
[2023-05-10 14:18] VITALS: BMI 26.8
[2023-05-10] MEDS: THIAMINE 100 MG TAB PO SCH (14:49)
--- NOTE | 2023-05-10 15:33 | P.PN ---
Subjective HISTORY OF PRESENTING ILLNESS 68-year-old male who has not seen any physician recently and last 3 years. He smokes 1 pack per day has been a long-term smoker. He also drinks alcohol almost every day approximately 4 drinks. Patient reports that he was apparently well until his dinner. After dinner he started experiencing substernal chest pain which was pressure-like and heavy sensation. It was not relieved with 2 fu ll dose aspirin switch his gave him. It was associated with difficulty in breathing and diaphoresis and nausea. Due to this to called EMS. When EMS arrived they noticed that he was in ventricular tachycardia with heart rate around 150s. He came out of ventricular tachycardia spontaneously and postconversion ECG shows ST elevations in lead V2 to V4. STEMI alert was activated and cardiology was paged. I evaluate the patient around 10:30 PM. Performed a bedside echocardiogram which showed mid to distal anterior anteroseptal and anteroapical wall hypokinesia. EF appeared to be in the range of 35-40%. Patient denies any prior history of stroke, TIA bleeding problems major ALLERGIE S. Patient received 325 mg of aspirin, 4000 units of heparin, 150 mg bolus of amiodarone. 05/10 Seen and examined. Patient underwent left heart catheterization yesterday which showed. Severe ostial LAD stenosis with likely subacute process with right to left collaterals. Additionally EKG does show Q waves in the anterior leads with ST elevations. He has had frequent PVCs as well as frequent PACs and almost multifocal atrial tachycardia. He denies any chest pain or pressure. He does admit to 3 prior episodes of syncope. Blood work also shows that he is diabetic with hemoglobin A1c over 10 however has not been taking to the diabetes medications he was prescribed before. He admits he eats a pint of ice cream at night and also drinks significant amount of alcohol. Amiodarone has been continued and due to and at 11 PM tonight. Echocardiogram was performed however has not resulted. PHYSICAL EXAMINATION Vital signs reviewed. Head: Normocephalic. Eyes: Sclerae nonicteric. Neck: Brisk carotid upstroke, no jugular venous distention. Lungs: Clear to auscultation. Heart: Regular rate and rhythm, S1-S2, no S3, no murmur or rub. Abdomen: Soft nontender, positive bowel sounds no organomegaly. Extremities: No edema, intact distal pulses. Neuro: Alert, oritented, no focal deficits ASSESSMENT Anterior STEMI Heavy smoking history Heavy alcohol use history Likely ischemic cardiomyopathy Ventricular tachycardia, question early related to acute coronary syndrome versus scar Diabetes mellitus type 2 not compliant with medications Noncompliance PLAN Continue dual antiplatelets with aspirin and Brilinta Increase heart failure regimen as able, continue with metoprolol and losartan. Can consider addition of [place]'s or Aldactone depending on echo and EF. Tobacco cessation, alcohol cessation Discussed better diabetes control Patient with a number of syncopal episodes in the past. Patient not having active chest pain during heart catheterization and some consideration of a srinivasan bacute presentation. This would be more concerning for VT coming from scar and likely consider LifeVest going home. Further recommendations to follow. Objective - Vital Signs Vital signs: Vital Signs Temp 97.7 F 05/10/23 12:00 Pulse 60 05/10/23 15:00 Resp 25 H 05/10/23 15:00 BP 119/66 05/10/23 15:00 Pulse Ox 98 05/10/23 15:00 FiO2 Intake & Output 05/09/23 05/10/23 05/10/23 18:59 06:59 18:59 Intake Total 1200 1090 Output Total 2200 550 Balance -1000 540 Weight 100 kg 100 kg Intake: IV 1200 500 Sodium Chloride 0.9% 1, 800 500 000 ml @ 100 mls/hr IV . Q10H KATY Rx#:[id number] Oral 590 Output: Urine 2200 550 Other: Voiding Method Urinal Urinal # Voids 2 0 - Labs CBC & Chem 7: 05/10/23 03:50 05/10/23 03:50 Labs: Abnormal Lab Results - Last 24 Hours (Table) 05/09/23 05/09/23 05/09/23 Range/Units 03:50 22:20 22:23 Plt Count 120 L (150-450) k/uL Sodium (137-145) mmol/L Carbon Dioxide (22-30) mmol/L Glucose (74-99) mg/dL POC Glucose (mg/dL) 441 H (70-110) mg/dL Hemoglobin A1c 10.4 H (<=6.0) % Total Protein (6.3-8.2) g/dL Albumin (3.5-5.0) g/dL Triglycerides (0.00-149.00) mg/dL Cholesterol (0.00-200.00) mg/dL LDL Cholesterol, Calc (0.0-131.0) mg/dL VLDL Cholesterol, Calc (5.00-40.00) mg/dL HDL Cholesterol (40.00-60.00) mg/dL 05/09/23 05/10/23 05/10/23 Range/Units 22:23 03:50 03:50 Plt Count 110 L (150-450) k/uL Sodium 134 L 135 L (137-145) mmol/L Carbon Dioxide 21 L (22-30) mmol/L Glucose 412 H 485 H (74-99) mg/dL POC Glucose (mg/dL) (70-110) mg/dL Hemoglobin A1c (<=6.0) % Total Protein 5.9 L (6.3-8.2) g/dL Albumin 3.4 L (3.5-5.0) g/dL Triglycerides (0.00-149.00) mg/dL Cholesterol (0.00-200.00) mg/dL LDL Cholesterol, Calc (0.0-131.0) mg/dL VLDL Cholesterol, Calc (5.00-40.00) mg/dL HDL Cholesterol (40.00-60.00) mg/dL 05/10/23 05/10/23 05/10/23 Range/Units 03:50 06:23 11:15 Plt Count (150-450) k/uL Sodium (137-145) mmol/L Carbon Dioxide (22-30) mmol/L Glucose (74-99) mg/dL POC Glucose (mg/dL) 416 H 233 H (70-110) mg/dL Hemoglobin A1c (<=6.0) % Total Protein (6.3-8.2) g/dL Albumin (3.5-5.0) g/dL Triglycerides 285.00 H (0.00-149.00) mg/dL Cholesterol 242.00 H (0.00-200.00) mg/dL LDL Cholesterol, Calc 145.9 H (0.0-131.0) mg/dL VLDL Cholesterol, Calc 57.00 H (5.00-40.00) mg/dL HDL Cholesterol 39.10 L (40.00-60.00) mg/dL
[2023-05-10 16:11] LABS: Glucose,Whole Blood 116 mg/dL (70-110)
[2023-05-10] MEDS: HEPARIN SODIUM,PORCINE 5,000 UNIT/ML 1 ML VIAL SQ SCH ×2 (16:57→23:54)
[2023-05-10 20:13] LABS: Glucose,Whole Blood 239 mg/dL (70-110)
[2023-05-11] MEDS ORDERED: ALPRAZolam 0.5 MG TAB PO STA (00:29)
[2023-05-11] MEDS: INSULIN DETEMIR (LEVEMIR) 100 UNIT/ML SYR SQ SCH (06:55)
[2023-05-11] MEDS: INSULIN ASPART (NovoLOG) 100 UNIT/ML VIAL SQ SCH ×4 (06:55→20:40)
[2023-05-11 06:58] LABS: Glucose,Whole Blood 242 mg/dL (70-110)
[2023-05-11 08:35] LABS: Basophils % (A) 1 %; Eosinophils % (A) 1 %; HCT 44.3 % (39.0-53.0); HGB 15.4 gm/dL (13.0-17.5); Lymphocytes % (A) 31 %; MCH 32.3 pg (25.0-35.0); MCHC 34.6 g/dL (31.0-37.0); MCV 93.3 fL (80.0-100.0); Mean Platelet Volume 9.6; Monocytes # (A) 0.3 k/uL (0-1.0); Monocytes % (A) 5 %; Neutrophils # (A) 4.1 k/uL (1.3-7.7); Neutrophils % (A) 62 %; Platelet Count 110 k/uL (150-450); RBC 4.75 m/uL (4.30-5.90); RDW 14.5 % (11.5-15.5); WBC 6.7 k/uL (3.8-10.6)
[2023-05-11] MEDS: LOSARTAN 25 MG TAB PO SCH (08:35)
[2023-05-11] MEDS: METOPROLOL TARTRATE 25 MG TAB PO SCH ×2 (08:35→20:40)
[2023-05-11] MEDS: TICAGRELOR 90 MG TAB PO SCH ×2 (08:35→20:40)
[2023-05-11] MEDS: ASPIRIN 81 MG PO SCH (08:35)
[2023-05-11] MEDS: THIAMINE 100 MG TAB PO SCH (08:35)
[2023-05-11] MEDS: ATORVASTATIN 80 MG TAB PO SCH (08:35)
[2023-05-11] MEDS: HEPARIN SODIUM,PORCINE 5,000 UNIT/ML 1 ML VIAL SQ SCH ×3 (08:36→23:29)
[2023-05-11 08:51] LABS: Potassium 3.9 mmol/L (3.5-5.1)
[2023-05-11 08:52] LABS: African American GFR (CKD) >90 (>60 ml/min/1.73 sqM); Anion Gap 7 mmol/L; Blood Urea Nitrogen 15 mg/dL (9-20); Calcium 8.7 mg/dL (8.4-10.2); Carbon Dioxide 25 mmol/L (22-30); Chloride 106 mmol/L (98-107); Glucose 122 mg/dL (74-99); Magnesium 2.1 mg/dL (1.6-2.3); Non-African American GFR(CKD) >90 (>60 ml/min/1.73 sqM); Sodium 138 mmol/L (137-145)
--- NOTE | 2023-05-11 09:52 | CA ---
Transthoracic Echo Report Name: Gianni Roe Age: 68 Gender: M : 1955 Exam Date: 05/10/2023 09:01 Exam Location: [facility] Ht (in): 76 Wt (lb): 220 Ordering Physician: Mychal Griffith MD ([id number]) Attending/Referring Phys: Pipe Organ Mechanic Dav Waller Procedure CPT: Indications: stemi Cardiac Hx: Technical Quality: Fair Contrast 1: Definity Total Dose (mL): 2 Contrast 2: Total Dose (mL): MEASUREMENTS (Male / Female) Normal Values 2D ECHO LV Diastolic Diameter PLAX 4.9 cm 4.2 - 5.9 / 3.9 - 5.3 cm LV Systolic Diameter PLAX 4.1 cm IVS Diastolic Thickness 1.1 cm 0.6 - 1.0 / 0.6 - 0.9 cm LVPW Diastolic Thickness 1.1 cm 0.6 - 1.0 / 0.6 - 0.9 cm LV Relative Wall Thickness 0.5 RV Internal Dim ED PLAX 2.6 cm LVOT Diameter 2.4 cm Aortic Root Diameter 2.8 cm LA Systolic Diameter LX 2.2 cm 3.0 - 4.0 / 2.7 - 3.8 cm LV Diastolic Volume MOD BP 91.3 cm??? 67 - 155 / 56 - 104 cm??? LV Systolic Volume MOD BP 61.4 cm??? 22 - 58 / 19 - 49 cm??? LV Ejection Fraction MOD BP 32.7 % >= 55 % LV Cardiac Index MOD BP 810.7 cm???/min???m??? LV Diastolic Volume MOD 4C 136.2 cm??? LV Systolic Volume MOD 4C 97.5 cm??? LV Ejection Fraction MOD 4C 28.4 % LV Cardiac Index MOD 4C 1050.2 cm???/min???m??? LV Diastolic Length 4C 8.6 cm LV Systolic Length 4C 8.0 cm LV Diastolic Volume MOD 2C 59.8 cm??? LV Systolic Volume MOD 2C 39.1 cm??? LV Ejection Fraction MOD 2C 34.6 % LV Cardiac Index MOD 2C 560.9 cm???/min???m??? LV Diastolic Length 2C 8.9 cm LV Systolic Length 2C 8.1 cm LA Volume 34.3 cm??? 18 - 58 / 22 - 52 cm??? LA Volume Index 14.8 cm???/m??? 16 - 28 cm???/m??? DOPPLER AV Peak Velocity 162.9 cm/s AV Peak Gradient 10.6 mmHg LVOT Peak Velocity 99.0 cm/s LVOT Peak Gradient 3.9 mmHg LVOT Velocity Time Integral 22.2 cm LVOT Stroke Volume 96.6 cm??? LVOT Stroke Volume Index 41.9 ml/m??? LVOT Cardiac Index 2618.5 cm???/min???m??? AV Area Cont Eq pk 2.6 cm??? MV Peak Velocity 117.5 cm/s MV Peak Gradient 5.5 mmHg MV Mean Velocity 63.6 cm/s MV Mean Gradient 2.0 mmHg MV Velocity Time Integral 61.3 cm MR Peak Velocity 203.5 cm/s MR Peak Gradient 16.6 mmHg Mitral E Point Velocity 92.1 cm/s Mitral A Point Velocity 101.0 cm/s Mitral E to A Ratio 0.9 MV Deceleration Time 314.5 ms MV E' Velocity 5.4 cm/s Mitral E to MV E' Ratio 17.1 TR Peak Velocity 142.2 cm/s TR Peak Gradient 8.1 mmHg Right Ventricular Systolic Press 13.1 mmHg PV Peak Velocity 103.4 cm/s PV Peak Gradient 4.3 mmHg FINDINGS Left Ventricle LV near upper limits in size. Normal wall thickness. Mitral distal anterior, anterolateral, anteroseptal, anteroapical and apical wall akinesia. Left ventricular ejection fraction is estimated at 20-25 %. No evidence of LV thrombus Right Ventricle Normal right ventricular size. Right Atrium Normal right atrial size. Left Atrium Normal left atrial size. Mitral Valve Structurally normal mitral valve. Aortic Valve Normal appearing AV. No aortic valve stenosis or regurgitation. Tricuspid Valve Structurally normal tricuspid valve. Trace TR. Pulmonic Valve Pulmonic valve not well visualized. No pulmonic regurgitation. Pericardium Normal pericardium. Aorta Normal size aortic root. CONCLUSIONS Left ventricular ejection fraction is estimated at 20-25 %. Mitral distal anterior, anterolateral, anteroseptal, anteroapical and apical wall akinesia. No evidence of LV thrombus. No mitral regurgitation No other significant valvular pathology no pericardial effusion Previewed by: Dr Mychal Griffith (Electronically Signed) Final Date: 11 May 2023 09:51
[2023-05-11] MEDS ORDERED: CAFFEINE CITRATE 60 MG/3 ML VIAL IV PRN (11:30)
[2023-05-11] MEDS ORDERED: AMINOPHYLLINE 500 MG/20 ML VIAL IV PRN (11:30)
[2023-05-11] MEDS ORDERED: REGADENOSON 0.4 MG/5 ML SYRINGE IV PRN (11:30)
[2023-05-11] MEDS ORDERED: SPIRONOLACTONE 25 MG TAB PO SCH (12:00)
--- NOTE | 2023-05-11 12:02 | P.PN ---
Subjective Progress Note Date: 05/11/23 Hospital Course: 68-year-old male with history of nicotine dependence, and alcohol dependence presented with sudden onset chest pain. Upon EMS arrival he was noted to be in Vtach that converted spontaneously , after which EKG showed ST elevation in leads V2-V4. dental laboratory manager was activated, cardiology performed a bedside echo which showed LVEF of 35% and anteroseptal and anteroapical hypokinesis. In laborer [employer], found to have significant ostial LAD occlusion, 2 stents placed. Currently in medical ICU. Echocardiogram showed LVEF 20-25%, no LV thrombus. Patient also found to have large scrotum likely hydrocele. Urology consulted. Subjective: Patient seen and examined at bedside. No acute events overnight. Denies any chest pain or shortness of breath. Pertinent positives and negatives as discussed above, a complete review of systems was performed and all other systems are negative. Vitals Signs Reviewed. General: nontoxic, no distress, appears at stated age Derm: warm, dry Head: atraumatic, normocephalic, symmetric Eyes: EOMI, no lid lag, anicteric sclera Mouth: no lip lesion, mucus membranes moist Cardiovascular: S1S2 reg, no murmur Lungs:CTA bilatera,no rhonchi, no rale ,no accessory muscle us, supplemental oxygen Abdominal:sof, nontender to palpatio,no guardin,no appreciable organomegal, large right scrotum Ext:no gross muscle atroph,no iraida,no contracture Neuro: CN II-XI grossly intac,no focal neuro deficit Psych:Aler,oriente,appropriate affect Data Reviewed Today: Pertinent Labs: WBC 6.7, hemoglobin 15.4, platelets 110, creatinine 0.87, glucose ranging between 122-242, magnesium 2.1 Imaging: Echocardiogram shows LVEF 2025%, no LV thrombus Assessment and Plan: STEMI status post LAD stent Ischemic cardiomyopathy, EF 20- 25% Ventricular tachycardia, self terminated Dyslipidemia New-onset type 2 diabetes, A1c 10.4, with hyperglycemia -Cardiology following -Continue aspirin 81 mg daily, atorvastatin 80 mg daily, losartan 12.5 mg daily, metoprolol 25 mg twice a day, brilinta 90 mg twice a day -on Levemir 15 units daily, sliding scale insulin, monitor for hypoglycemia -Started on farxiga 10 mg daily -Aldactone 12.5 mg daily also added -Patient pending LifeVest Scrotal hydrocele -Mostly asymptomatic -Urology recommended, outpatient follow-up in 2-3 months Nicotine dependence -Counseled regarding smoking cessation Alcohol dependence -Monitor for withdrawals -Thiamine 100 mg daily DVT ppx: Subcu heparin Code status: DNR/DNI Anticipated discharge place: Pending clinical course Anticipated discharge time: Pending clinical course Objective - Vital Signs Vital signs: Vital Signs Temp 97.2 F L 05/11/23 08:00 Pulse 60 05/11/23 08:00 Resp 18 05/11/23 08:00 BP 119/62 05/11/23 08:00 Pulse Ox 100 05/11/23 08:00 FiO2 Intake & Output 05/10/23 05/11/23 05/11/23 18:59 06:59 18:59 Intake Total 1210 540 120 Output Total 775 Balance 435 540 120 Weight 100 kg Intake: IV 500 Sodium Chloride 0.9% 1, 500 000 ml @ 100 mls/hr IV . Q10H [facility] Rx#:[id number] Oral 710 540 120 Output: Urine 775 Other: Voiding Method Urinal Urinal Urinal # Voids 1 - Labs CBC & Chem 7: 05/11/23 07:16 05/11/23 07:16 Labs: Abnormal Lab Results - Last 24 Hours (Table) 05/10/23 05/10/23 05/10/23 Range/Units 15:26 16:09 20:12 Plt Count (150-450) k/uL Glucose (74-99) mg/dL POC Glucose (mg/dL) 116 H 239 H (70-110) mg/dL Troponin I 0.090 H* (0.000-0.034) ng/mL 05/11/23 05/11/23 05/11/23 Range/Units 06:52 07:16 07:16 Plt Count 110 L (150-450) k/uL Glucose 122 H (74-99) mg/dL POC Glucose (mg/dL) 242 H (70-110) mg/dL Troponin I (0.000-0.034) ng/mL
[2023-05-11 12:09] LABS: Glucose,Whole Blood 208 mg/dL (70-110)
--- NOTE | 2023-05-11 14:33 | P.PN ---
Subjective HISTORY OF PRESENT ILLNESS: 68-year-old male who has not seen any physician recently and last 3 years. He smokes 1 pack per day has been a long-term smoker. He also drinks alcohol almost every day approximately 4 drinks. Patient reports that he was apparently well until his dinner. After dinner he started experiencing substernal chest pain which was pressure-like and heavy sensation. It was not relieved with 2 full dose aspirin switch his gave him. It was associated with difficulty in breathing and diaphoresis and nausea. Due to this to called EMS. When EMS arrived they noticed that he was in ventricular tachycardia with heart rate around 150s. He came out of ventricular tachycardia spontaneously and postconversion ECG shows ST elevations in lead V2 to V4. STEMI alert was activated and cardiology was paged. I evaluate the patient around 10:30 PM. Performed a bedside echocardiogram which showed mid to distal anterior anteroseptal and anteroapical wall hypokinesia. EF appeared to be in the range of 35-40%. Patient denies any prior history of stroke, TIA bleeding problems major ALLERGIES. Patient received 325 mg of aspirin, 4000 units of heparin, 150 mg bolus of amiodarone. 05/10 Seen and examined. Patient underwent left heart catheterization yesterday which showed. Severe ostial LAD stenosis with likely subacute process with right to left collaterals. Additionally EKG does show Q waves in the anterior leads with ST elevations. He has had frequent PVCs as well as frequent PACs and almost multifocal atrial tachycardia. He denies any chest pain or pressure. He does admit to 3 prior episodes of syncope. Blood work also shows that he is diabetic with hemoglobin A1c over 10 however has not been taking to the diabetes medications he was prescribed before. He admits he eats a pint of ice cream at night and also drinks significant amount of alcohol. Amiodarone has been continued and due to and at 11 PM tonight. Echocardiogram was performed however has not resulted. May 11 2023 Patient examined this morning at the bedside. She currently denies chest pain or pressure. He denies shortness of breath. Vital signs are stable. Echocardiogram completed revealing ejection fraction 20-25%. PHYSICAL EXAM: VITAL SIGNS: Reviewed. GENERAL: Well-developed in no acute distress. NECK: Supple. No JVD or thyromegaly LUNGS: Respirations even and unlabored. Lungs essentially clear to auscultation bilaterally. HEART: Regular rate and rhythm. S1 and S2 heard. EXTREMITIES: Normal range of motion. No clubbing or cyanosis. Peripheral pulses intact. No lower extremity edema ASSESSMENT: Anterior STEMI Heavy smoking history Heavy alcohol use history Likely ischemic cardiomyopathy Ventricular tachycardia, question early related to acute coronary syndrome versus scar Diabetes mellitus type 2 not compliant with medications Noncompliance PLAN: Continue current cardiac medications Add amiodarone 400 mg twice a day for one week. Then decrease to 200 mg twice a day for one week, then decrease to 200 mg daily Patient has been started on Aldactone by primary medicine He will require LifeVest at the time of discharge. Form signed by Dr. Alejandre and given to case management Further recommendations pending patient's course Nurse practitioner note has been reviewed by physician. Signing provider agrees with the documented findings, assessment, and plan of care. Objective - Vital Signs Vital signs: Vital Signs Temp 98.1 F 05/10/23 20:00 Pulse 67 05/11/23 04:00 Resp 16 05/11/23 04:00 BP 118/63 05/11/23 04:00 Pulse Ox 98 05/11/23 04:00 FiO2 Intake & Output 05/10/23 05/11/23 05/11/23 18:59 06:59 18:59 Intake Total 1210 540 Output Total 775 Balance 435 540 Weight 100 kg Intake: IV 500 Sodium Chloride 0.9% 1, 500 000 ml @ 100 mls/hr IV . Q10H [facility] Rx#:[id number] Oral 710 540 Output: Urine 775 Other: Voiding Method Urinal Urinal # Voids 1 - Labs CBC & Chem 7: 05/11/23 07:16 05/11/23 07:16 Labs: Abnormal Lab Results - Last 24 Hours (Table) 05/09/23 05/10/23 05/10/23 Range/Units 03:50 03:50 11:15 Plt Count (150-450) k/uL POC Glucose (mg/dL) 233 H (70-110) mg/dL Hemoglobin A1c 10.4 H (<=6.0) % Troponin I (0.000-0.034) ng/mL Triglycerides 285.00 H (0.00-149.00) mg/dL Cholesterol 242.00 H (0.00-200.00) mg/dL LDL Cholesterol, Calc 145.9 H (0.0-131.0) mg/dL VLDL Cholesterol, Calc 57.00 H (5.00-40.00) mg/dL HDL Cholesterol 39.10 L (40.00-60.00) mg/dL 05/10/23 05/10/23 05/10/23 Range/Units 15:26 16:09 20:12 Plt Count (150-450) k/uL POC Glucose (mg/dL) 116 H 239 H (70-110) mg/dL Hemoglobin A1c (<=6.0) % Troponin I 0.090 H* (0.000-0.034) ng/mL Triglycerides (0.00-149.00) mg/dL Cholesterol (0.00-200.00) mg/dL LDL Cholesterol, Calc (0.0-131.0) mg/dL VLDL Cholesterol, Calc (5.00-40.00) mg/dL HDL Cholesterol (40.00-60.00) mg/dL 05/11/23 05/11/23 Range/Units 06:52 07:16 Plt Count 110 L (150-450) k/uL POC Glucose (mg/dL) 242 H (70-110) mg/dL Hemoglobin A1c (<=6.0) % Troponin I (0.000-0.034) ng/mL Triglycerides (0.00-149.00) mg/dL Cholesterol (0.00-200.00) mg/dL LDL Cholesterol, Calc (0.0-131.0) mg/dL VLDL Cholesterol, Calc (5.00-40.00) mg/dL HDL Cholesterol (40.00-60.00) mg/dL
[2023-05-11] MEDS: DAPAGLIFLOZIN PROPANEDIOL 10 MG TABLET PO SCH (15:46)
[2023-05-11] MEDS: AMIODARONE 200 MG TAB PO SCH ×2 (15:46→20:40)
[2023-05-11 17:00] LABS: Glucose,Whole Blood 192 mg/dL (70-110)
[2023-05-11 20:24] LABS: Glucose,Whole Blood 204 mg/dL (70-110)
[2023-05-12 06:14] LABS: Glucose,Whole Blood 119 mg/dL (70-110)
[2023-05-12] MEDS: INSULIN DETEMIR (LEVEMIR) 100 UNIT/ML SYR SQ SCH (06:16)
[2023-05-12] MEDS: INSULIN ASPART (NovoLOG) 100 UNIT/ML VIAL SQ SCH ×2 (06:17→13:14)
[2023-05-12 08:32] VITALS: PULSE 53; RESP 18
[2023-05-12] MEDS: LOSARTAN 25 MG TAB PO SCH (08:57)
[2023-05-12] MEDS: HEPARIN SODIUM,PORCINE 5,000 UNIT/ML 1 ML VIAL SQ SCH (08:57)
[2023-05-12] MEDS: TICAGRELOR 90 MG TAB PO SCH (08:57)
[2023-05-12] MEDS: AMIODARONE 200 MG TAB PO SCH (08:57)
[2023-05-12] MEDS: THIAMINE 100 MG TAB PO SCH (08:57)
[2023-05-12] MEDS: ASPIRIN 81 MG PO SCH (08:57)
[2023-05-12] MEDS: METOPROLOL TARTRATE 25 MG TAB PO SCH (08:57)
[2023-05-12] MEDS: ATORVASTATIN 80 MG TAB PO SCH (08:58)
[2023-05-12] MEDS: DAPAGLIFLOZIN PROPANEDIOL 10 MG TABLET PO SCH (08:58)
[2023-05-12] MEDS ORDERED: SPIRONOLACTONE 25 MG TAB PO SCH (09:00)
--- NOTE | 2023-05-12 11:19 | P.PN ---
Subjective Progress Note Date: 05/12/23 Hospital Course: 68-year-old male with history of nicotine dependence, and alcohol dependence p resented with sudden onset chest pain. Upon EMS arrival he was noted to be in Vtach that converted spontaneously , after which EKG showed ST elevation in leads V2-V4. vp lab was activated, cardiology performed a bedside echo which showed LVEF of 35% and anteroseptal and anteroapical hypokinesis. 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 Currently in medical ICU. Echocardiogram showed LVEF 20-25%, no LV thrombus. Patient also found to have large scrotum likely hydrocele. Urology consulted. Pending LifeVest. Subjective: Patient seen and examined at bedside. No acute events overnight. Denies any chest pain or shortness of breath. Pertinent positives and negatives as discussed above, a complete review of systems was performed and all other systems are negative. Vitals Signs Reviewed. General: nontoxic, no distress, appears at stated age Derm: warm, dry Head: atraumatic, normocephalic, symmetric Eyes: EOMI, no lid lag, anicteric sclera Mouth: no lip lesion, mucus membranes moist Cardiovascular: S1S2 reg, no murmur Lungs:CTA bilatera,no rhonchi, no rale ,no accessory muscle us, supplemental oxygen Abdominal:sof, nontender to palpatio,no guardin,no appreciable organomegal, large right scrotum Ext:no gross muscle atroph,no iraida,no contracture Neuro: CN II-XI grossly intac,no focal neuro deficit Psych:Aler,oriente,appropriate affect Data Reviewed Today: Pertinent Labs: Blood sugars range between 119-208 Imaging: No new imaging Assessment and Plan: STEMI status post LAD stent Ischemic cardiomyopathy, EF 20- 25% Ventricular tachycardia, self terminated Dyslipidemia New-onset type 2 diabetes, A1c 10.4, with hyperglycemia -Cardiology following, on amiodarone oral 400 mg twice a day -Continue aspirin 81 mg daily, atorvastatin 80 mg daily, losartan 12.5 mg daily, metoprolol 25 mg twice a day, brilinta 90 mg twice a day -on Levemir 15 units daily, sliding scale insulin, monitor for hypoglycemia -on farxiga 10 mg daily -Aldactone 12.5 mg daily -Patient pending LifeVest Scrotal hydrocele -Mostly asymptomatic -Urology recommended, outpatient follow-up in 2-3 months Nicotine dependence -Counseled regarding smoking cessation Alcohol dependence -Monitor for withdrawals -Thiamine 100 mg daily DVT ppx: Subcu heparin Code status: DNR/DNI Anticipated discharge place: Pending clinical course Anticipated discharge time: Pending clinical course Objective - Vital Signs Vital signs: Vital Signs Temp 97.8 F 05/12/23 07:35 Pulse 53 L 05/12/23 07:35 Resp 18 05/12/23 07:35 BP 136/80 05/12/23 07:35 Pulse Ox 95 05/12/23 08:18 FiO2 Intake & Output 05/11/23 05/12/23 05/12/23 18:59 06:59 18:59 Intake Total 480 Balance 480 Intake: Oral 480 Other: Voiding Method Urinal Urinal # Voids 2 - Labs CBC & Chem 7: 05/11/23 07:16 05/11/23 07:16 Labs: Abnormal Lab Results - Last 24 Hours (Table) 05/11/23 05/11/23 05/11/23 Range/Units 12:03 16:38 20:23 POC Glucose (mg/dL) 208 H 192 H 204 H (70-110) mg/dL 05/12/23 Range/Units 06:12 POC Glucose (mg/dL) 119 H (70-110) mg/dL
[2023-05-12 11:33] LABS: Glucose,Whole Blood 345 mg/dL (70-110)
[2023-05-12 13:31] VITALS: BP 112/69; TEMP 97.9
--- NOTE | 2023-05-12 13:46 | P.DS ---
Providers Date of admission: 05/09/23 22:24 Expected date of discharge: 05/12/23 Attending physician: Ayo Shannon MD Consults: 05/09/23 22:23 Consult Physician Stat Consulting Provider: Mychal Griffith Consult Reason/Comments: STEMI Do you want consulting provider notified?: Yes 05/10/23 00:00 Consult Physician Routine Consulting Provider: [facility] Consult Reason/Comments: Post Interventional Patient Do you want consulting provider notified?: Already Contacted 05/10/23 04:24 Consult Physician Routine Consulting Provider: Diony Zhou Consult Reason/Comments: scrotal swelling Do you want consulting provider notified?: Yes, Notify in am Primary care physician: [facility] Hospital Course: Discharge Diagnosis: STEMI status post LAD stent Ischemic cardiomyopathy, EF 20- 25% Ventricular tachycardia, self terminated Dyslipidemia New-onset type 2 diabetes, A1c 10.4, with hyperglycemia Scrotal hydrocele Nicotine dependence Alcohol dependence Hospital Course: 68-year-old male with history of nicotine dependence, and alcohol dependence presented with sudden onset chest pain. Upon EMS arrival he was noted to be in Vtach that converted spontaneously , after which EKG showed ST elevation in leads V2-V4. field laboratory operator was activated, cardiology performed a bedside echo which showed LVEF of 35% and anteroseptal and anteroapical hypokinesis. In clinical laboratory technician, found to have significant ostial LAD occlusion, 2 stents placed. Echocardiogram showed LVEF 20-25%, no LV thrombus. On guideline directed medical therapy. Patient also found to have large scrotum likely hydrocele. Urology consulted. Outpatient follow-up. Also has New-onset type 2 diabetes, A1c 10.4, started on anti-diabetics. Needs close follow-up with PCP. Patient seen and examined at bedside. Vital signs reviewed and stable. General: nontoxic, no distress, appears at stated age Derm: warm, dry Head: atraumatic, normocephalic, symmetric Eyes: EOMI, no lid lag, anicteric sclera Mouth: no lip lesion, mucus membranes moist Cardiovascular: S1S2 reg, no murmur Lungs: CTA bilateral, no rhonchi, no rales , no accessory muscle use Abdominal: soft, nontender to palpation, no guarding, no appreciable organomegaly Ext: no gross muscle atrophy, no edema, no contractures Neuro: CN II-XI grossly intact, no focal neuro deficits Psych: Alert, oriented, appropriate affect A total of 33 minutes of time were spent preparing this complex discharge summary. Patient was discharged on 05/12/23 at 1342. Patient Condition at Discharge: Stable Plan - Discharge Summary Discharge Rx Participant: Yes New Discharge Prescriptions: New Atorvastatin [Lipitor] 80 mg PO DAILY #90 tab Metoprolol Tartrate [Lopressor] 25 mg PO BID #90 tab metFORMIN HCL ER [Glucophage XR] 500 mg PO BID #90 tab Spironolactone [Aldactone] 12.5 mg PO DAILY #90 tab Aspirin 81 mg PO DAILY #90 tab Ticagrelor [Brilinta] 90 mg PO BID #90 tab Amiodarone [Cordarone] 400 mg PO BID #90 tab Losartan [Cozaar] 12.5 mg PO DAILY #90 tab Dapagliflozin Propanediol [Farxiga] 10 mg PO DAILY #90 tab Thiamine [Vitamin B-1] 100 mg PO DAILY #90 tab Discharge Medication List Amiodarone [Cordarone] 400 mg PO BID #90 tab 05/12/23 [Rx] Aspirin 81 mg PO DAILY #90 tab 05/12/23 [Rx] Atorvastatin [Lipitor] 80 mg PO DAILY #90 tab 05/12/23 [Rx] Dapagliflozin Propanediol [Farxiga] 10 mg PO DAILY #90 tab 05/12/23 [Rx] Losartan [Cozaar] 12.5 mg PO DAILY #90 tab 05/12/23 [Rx] Metoprolol Tartrate [Lopressor] 25 mg PO BID #90 tab 05/12/23 [Rx] Spironolactone [Aldactone] 12.5 mg PO DAILY #90 tab 05/12/23 [Rx] Thiamine [Vitamin B-1] 100 mg PO DAILY #90 tab 05/12/23 [Rx] Ticagrelor [Brilinta] 90 mg PO BID #90 tab 05/12/23 [Rx] metFORMIN HCL ER [Glucophage XR] 500 mg PO BID #90 tab 05/12/23 [Rx] Follow up Appointment(s)/Referral(s): Gonzalez Alejandre DO [STAFF PHYSICIAN] - 1 Week Diony Zhou MD [STAFF PHYSICIAN] - 6 Weeks [facility] [Primary Care Provider] - 1-2 days Patient Instructions/Handouts: Heart Attack (DC), Heart Healthy Diet (DC), Type 2 Diabetes in Adults: New Diagnosis (DC), Abuse of Alcohol (DC) Activity/Diet/Wound Care/Special Instructions: Please see PCP and cardiology. Discharge/Stand Alone Forms: Area PCPs Discharge Disposition: HOME SELF-CARE
== END 2023-05-12 14:34 | disposition home or self-care (01) | DRG 322 ==
LOC: EC 22:18 → 2SICU 22:24 → 3SCARD 05-10 18:49
PROVIDERS: ADMIT Internal Medicine; ATTEND Internal Medicine
PROC: 027035Z Dilation of Coronary Artery, One Artery with Two Drug-eluting Intraluminal Devices, Percutaneous Approach (ICD-10-PCS; principal; 2023-05-09 22:31)
PROC: B2111ZZ Fluoroscopy of Multiple Coronary Arteries using Low Osmolar Contrast (ICD-10-PCS; principal; 2023-05-09 22:31)
PROC: 4A023N7 Measurement of Cardiac Sampling and Pressure, Left Heart, Percutaneous Approach (ICD-10-PCS; 2023-05-09 22:31)
PROC: B2111ZZ Fluoroscopy of Multiple Coronary Arteries using Low Osmolar Contrast (ICD-10-PCS; 2023-05-09 22:31)
DX: I21.09 ST elevation (STEMI) myocardial infarction involving other coronary artery of anterior wall (principal); I47.20 Ventricular tachycardia, unspecified; E11.65 Type 2 diabetes mellitus with hyperglycemia; F10.20 Alcohol dependence, uncomplicated; I25.5 Ischemic cardiomyopathy; I25.10 Atherosclerotic heart disease of native coronary artery without angina pectoris; Z66 Do not resuscitate; I10 Essential (primary) hypertension; E78.5 Hyperlipidemia, unspecified; N43.3 Hydrocele, unspecified; Z28.310 Unvaccinated for COVID-19; F32.A Depression, unspecified; I49.3 Ventricular premature depolarization; J30.2 Other seasonal allergic rhinitis; K21.9 Gastro-esophageal reflux disease without esophagitis; F17.210 Nicotine dependence, cigarettes, uncomplicated; Z71.6 Tobacco abuse counseling; Z91.148 Patient's other noncompliance with medication regimen for other reason; Z91.51 Personal history of suicidal behavior
CPT/HCPCS: 36415; 71045; 76870; 76937; 80048; 80053; 80061; 83036; 83735; 84484; 85025; 85027; 85610; 85730; 92978; 93005; 93306; 93454; 93975; 94760; 96374; 99285